=== PATIENT | male | born 1960 | race Caucasian/White ===

== ENCOUNTER → 2021-05-01 | Outpatient (CLI) | payer OTHER ==
--- NOTE | 2021-05-01 14:17 | REP ---
INDICATION: PAIN. COMPARISON: None. FINDINGS: No acute fracture or destructive osseous lesion. The mortise is intact. There is a rather large retrocalcaneal heel spur and a small plantar calcaneal heel spur. IMPRESSION: Chronic changes as described above. If Achilles tendon injury is of clinical concern then an MRI examination would be in order. <Electronically signed by Carlos Schroeder > 05/01/21 [id number]
== END ==
LOC: M WUC 13:38
PROVIDERS: ATTEND Physician Assistant
DX: M25.572 Pain in left ankle and joints of left foot (principal)

== ENCOUNTER 2021-05-12 20:48 | Emergency (ER) | payer OTHER ==
[~2021-05-12] VITALS: Ht 175.3 cm; Wt 113.8 kg
[2021-05-12 20:48] VITALS: BP 122/72
[2021-05-12] MEDS ORDERED: LOSA50TA88 PO (20:56)
[2021-05-12] MEDS ORDERED: IBUP80TA PO (20:56)
== END 2021-05-13 01:22 | disposition home or self-care (01) ==
LOC: M ED 20:48
DX: S86.812A Strain of other muscle(s) and tendon(s) at lower leg level, left leg, initial encounter (principal); X50.0XXA Overexertion from strenuous movement or load, initial encounter; Y92.017 Garden or yard in single-family (private) house as the place of occurrence of the external cause; Y93.H2 Activity, gardening and landscaping; Y99.9 Unspecified external cause status; I10 Essential (primary) hypertension

== ENCOUNTER → 2021-05-15 | Outpatient (CLI) | payer OTHER ==
[~2021-05-15] MED LIST: IBUP80TA PO; LOSA50TA28 PO
== END ==
LOC: M RAD 14:40
PROVIDERS: ATTEND Physician Assistant
DX: M79.662 Pain in left lower leg (principal)

== ENCOUNTER → 2021-10-31 | Outpatient (REF) ==
[~2021-10-31] MED LIST changes: -LOSA50TA28 PO; +LOSA50TA88 PO
== END ==
LOC: M LABSMTC 09:17
PROVIDERS: ATTEND Pediatrics
DX: Z11.52 Encounter for screening for COVID-19 (principal)

== ENCOUNTER 2023-05-18 09:15 | Day surgery (SDC) | payer OTHER ==
[~2023-05-18] VITALS: Ht 175.3 cm; Wt 96.8 kg
[~2023-05-18 09:15] MED LIST changes: +LANS30CA93 PO; +LOSA50TA28 PO; -LOSA50TA88 PO; +NS 1,000 ML IV ONE
[2023-05-18] MEDS ORDERED: propofoL 200 MG/20 ML VIAL As Ordered ONE ×2 (11:15→11:23)
[2023-05-18] MEDS ORDERED: LIDOCAINE 2% 100MG/5ML SDV (FOR ANES.) As Ordered ONE (11:15)
[2023-05-18 11:45] VITALS: TEMP 97.4
[2023-05-18 12:02] VITALS: BP 154/85; O2SAT 96
== END 2023-05-18 12:14 | disposition home or self-care (01) ==
LOC: M OPP 09:15
PROVIDERS: ATTEND Internal Medicine Gastroenterology
DX: Z12.11 Encounter for screening for malignant neoplasm of colon (principal); D12.6 Benign neoplasm of colon, unspecified; K57.30 Diverticulosis of large intestine without perforation or abscess without bleeding; K64.4 Residual hemorrhoidal skin tags; K64.8 Other hemorrhoids; Z87.891 Personal history of nicotine dependence; G47.33 Obstructive sleep apnea (adult) (pediatric); Z99.89 Dependence on other enabling machines and devices; Z79.1 Long term (current) use of non-steroidal anti-inflammatories (NSAID); Z79.899 Other long term (current) drug therapy

== ENCOUNTER 2023-07-26 07:42 | Day surgery (SDC) | payer OTHER ==
[~2023-07-26] VITALS: Ht 175.3 cm; Wt 101.1 kg
[~2023-07-26 07:42] MED LIST changes: +LIDOCAINE 2% 100MG/5ML SDV (FOR ANES.) As Ordered ONE; +propofoL 200 MG/20 ML VIAL As Ordered ONE
[2023-07-26] MEDS ORDERED: ELEVIEW SUBMUCOSAL INJ 10ML AMP As Ordered ONE (09:32)
[2023-07-26 10:13] VITALS: TEMP 97.6
[2023-07-26 10:33] VITALS: BP 139/88; O2SAT 99
== END 2023-07-26 10:29 | disposition home or self-care (01) ==
LOC: M OPP 07:42
PROVIDERS: ATTEND Internal Medicine Gastroenterology
DX: Z12.11 Encounter for screening for malignant neoplasm of colon (principal); K63.5 Polyp of colon; D12.0 Benign neoplasm of cecum; K57.30 Diverticulosis of large intestine without perforation or abscess without bleeding; K64.4 Residual hemorrhoidal skin tags; K64.8 Other hemorrhoids; G47.33 Obstructive sleep apnea (adult) (pediatric); Z99.89 Dependence on other enabling machines and devices; Z79.1 Long term (current) use of non-steroidal anti-inflammatories (NSAID); Z79.899 Other long term (current) drug therapy

== ENCOUNTER 2024-10-13 08:15 | Day surgery (SDC) | payer OTHER ==
[~2024-10-13] VITALS: Ht 175.3 cm; Wt 86.3 kg
[~2024-10-13 08:15] MED LIST changes: -LIDOCAINE 2% 100MG/5ML SDV (FOR ANES.) As Ordered ONE; -NS 1,000 ML IV ONE; +PHEN37.58 PO; -propofoL 200 MG/20 ML VIAL As Ordered ONE
[2024-10-13] MEDS ORDERED: LIDOCAINE 2% 100MG/5ML SDV (FOR ANES.) As Ordered ONE (09:41)
[2024-10-13] MEDS ORDERED: propofoL 200 MG/20 ML VIAL As Ordered ONE (09:41)
[2024-10-13 10:49] VITALS: TEMP 97
[2024-10-13 11:08] VITALS: BP 119/82; O2SAT 97
== END 2024-10-13 11:13 | disposition home or self-care (01) ==
LOC: M OPP 08:15
PROVIDERS: ATTEND Internal Medicine Gastroenterology
DX: Z12.11 Encounter for screening for malignant neoplasm of colon (principal); D12.0 Benign neoplasm of cecum; D12.3 Benign neoplasm of transverse colon; K57.30 Diverticulosis of large intestine without perforation or abscess without bleeding; K64.8 Other hemorrhoids; Z86.0100 Personal history of colon polyps, unspecified; Z87.19 Personal history of other diseases of the digestive system; K21.9 Gastro-esophageal reflux disease without esophagitis; I10 Essential (primary) hypertension; G47.30 Sleep apnea, unspecified; Z79.899 Other long term (current) drug therapy

== ENCOUNTER → 2025-11-04 | Outpatient (REF) | payer OTHER | LOC: M LAB REF 10:18 | PROVIDERS: ATTEND Registered Nurse | DX: L02.214 Cutaneous abscess of groin (principal) ==